=== PATIENT | female | born 1955 | race Caucasian/White ===

== ENCOUNTER 2017-03-26 16:07 | Outpatient (CLI) | payer BC ==
--- NOTE | 2017-03-30 20:21 | Mammography Report ---
DIGITAL SCREENING MAMMOGRAPHY: 03/26/2017 COMPARISON: 04/19/2014, 04/06/2012. TECHNIQUE: Routine CC and MLO projections were obtained of the breasts. There are scattered fibroglandular densities. A few benign-appearing calcifications are present. Th ere is no suspicious dominant mass, architectural distortion, skin thickening, suspicious microcalcif ications, or other finding. IMPRESSION: NEGATIVE. BIRADS CATEGORY: 1, NEGATIVE. SUGGEST ROUTINE SCREENING IN ONE YEAR. STANDARD QUALIFYING STATEMENTS 1. This examination was reviewed with the aid of Computed-Aided Detection (CAD). 2. A negative or benign imaging report should not delay biopsy if clinically suspicious findings are present. Consider surgical consultation if warranted. More than 5% of cancers are not identified b y imaging. 3. Dense breasts may obscure an underlying neoplasm. JOB #: [id number] EXT JOB #:[id number]
== END 2017-03-26 16:08 | disposition home or self-care (01) ==
LOC: DI.N 16:07
PROVIDERS: ATTEND Family Medicine
DX: Z12.31 Encounter for screening mammogram for malignant neoplasm of breast (principal)
CPT/HCPCS: 77067

== ENCOUNTER 2017-07-23 15:24 | Outpatient (CLI) | payer BC ==
[2017-07-23 15:39] LABS: BASOPHILS % (AUTO) 0.6 %; EOSINOPHILS # (AUTO) 0.2 10^3/uL (0.0-0.7); EOSINOPHILS % (AUTO) 3.9 %; HGB - HEMOGLOBIN 11.5 g/dL (12.0-16.0); LYMPHOCYTES # (AUTO) 2.5 10^3/uL (1.5-3.5); LYMPHOCYTES % (AUTO) 41.4 %; MEAN CORPUSCULAR HEMOGLOBIN 27.5 pg (27.0-31.0); MEAN CORPUSCULAR HGB CONC 32.9 g/dL (32.0-36.0); MEAN CORPUSCULAR VOLUME 83.5 fL (81.0-99.0); MEAN PLATELET VOLUME 6.8 fL (7.9-10.8); MONOCYTES # (AUTO) 0.5 10^3/uL (0.0-1.0); MONOCYTES % (AUTO) 7.5 %; NEUTROPHILS # (AUTO) 2.9 10^3/uL (1.5-6.6); NEUTROPHILS % (AUTO) 46.6 %; PLT - PLATELET COUNT 410 10^3/uL (130-450); RED BLOOD COUNT 4.19 10^6/uL (4.20-5.40); RED CELL DISTRIBUTION WIDTH 16.1 % (12.0-15.0); WHITE BLOOD COUNT 6.1 x10^3/uL (4.8-10.8)
[2017-07-23 15:52] LABS: ALBUMIN 4.3 g/dL (3.2-5.5); ALBUMIN/GLOBULIN RATIO 1.3 (1.0-2.2); BILIRUBIN,TOTAL 0.4 mg/dL (0.2-1.0); CALCIUM 10.1 mg/dL (8.5-10.3); CREATININE 0.9 mg/dL (0.4-1.0); TOTAL PROTEIN 7.5 g/dL (6.7-8.2)
--- NOTE | 2017-07-24 10:45 | XRAY Report ---
DATE OF SERVICE: 07/23/2017 TWO VIEW CHEST: 07/23/2017 CLINICAL INDICATION: Shortness of breath. COMPARISON: 03/22/2009. FINDINGS: The cardiac silhouette is within normal limits. The lungs are clear. No effusion or pneumothorax is present. IMPRESSION: NORMAL CHEST. TD: 07/24/2017 11:44
== END 2017-07-23 15:25 | disposition home or self-care (01) ==
LOC: LAB 15:24
PROVIDERS: ATTEND Physician Assistant Medical
DX: R10.13 Epigastric pain (principal); R06.02 Shortness of breath
CPT/HCPCS: 36415; 71046; 80053; 82150; 83690; 84484; 85025; 85379

== ENCOUNTER 2017-07-23 17:36 | Outpatient (CLI) | payer BC ==
[2017-07-23] MEDS ORDERED: IOPAMIDOL-300 100 ML VIAL ONE (17:49)
[2017-07-23] MEDS ORDERED: IOPAMIDOL-300 100 ML VIAL IVP ONE (18:46)
--- NOTE | 2017-07-23 19:46 | CT Preliminary Report ---
Exam: CT CHEST ANGIO (PE) IMPRESSION: 1. Normal pulmonary CT angiogram. No pulmonary emboli. 2. No consolidation or acute pulmonary process. Moderate bronchial wall thickening. Findings could re present bronchitis in the appropriate circumstances. Chronic clinically. [facility] The call report notification system was initiated by Dr. Rossy Li at 19:28 hrs on 07/23/17. The above findings were discussed with Dr. Mcneal by Dr. Rossy Li at 19:44 hrs on 07/23/17. SITE ID: [id number]
--- NOTE | 2017-07-23 20:01 | CT Report ---
EXAM: CT ANGIOGRAM CHEST EXAM DATE: 07/23/2017 06:13 PM. CLINICAL HISTORY: Shortness of breath. COMPARISON: 07/23/2017. TECHNIQUE: Routine helical imaging was performed through the chest in the pulmonary arterial phase. I V Contrast: 80 mL Isovue 300. Reconstructions: Coronal 3-D MIP reconstructions.Sagittal and coronal. In accordance with CT protocol optimization, one or more of the following dose reduction techniques w ere utilized for this exam: automated exposure control, adjustment of mA and/or KV based on patient s ize, or use of iterative reconstructive technique. FINDINGS: Pulmonary Arteries: Diagnostic quality: Adequate through the segmental arteries. No evidence for acute or chronic pulmona ry emboli. RV/LV is within normal limits. There is no interventricular septal bowing. There is no reflux of cont rast material in the IVC. Lungs/Pleura: No consolidation, nodules, or edema. No effusions or pneumothorax. Mosaic attenuation o f the lung parenchyma is noted. Moderate central bronchial wall thickening. Mediastinum: Normal. No cardiac enlargement or adenopathy. Thoracic Aorta: Unremarkable. Upper Abdomen: Gallbladder surgically absent. Limited evaluation of the upper abdomen is grossly unre markable. Tiny hiatal hernia. Other: Homogeneous enhancement of the thyroid gland. No thyroid nodule or mass. No supraclavicular or axillary lymphadenopathy identified. IMPRESSION: 1. Normal pulmonary CT angiogram. No pulmonary emboli. 2. No consolidation or acute pulmonary process. Moderate bronchial wall thickening. Findings could re present bronchitis in the appropriate circumstances. Chronic clinically. RAD[facility] The call report notification system was initiated by Dr. Rossy Li at 19:28 hrs on 07/23/17. The above findings were discussed with Dr. Mcneal by Dr. Rossy Li at 19:44 hrs on 07/23/17. Referring Provider Line: [phone] SITE ID: [id number]
== END 2017-07-23 17:37 | disposition home or self-care (01) ==
LOC: DI 17:36
PROVIDERS: ATTEND Physician Assistant Medical
DX: R06.02 Shortness of breath (principal); R10.13 Epigastric pain
CPT/HCPCS: 36415; 71046; 71275; 80053; 82150; 83690; 84484; 85025; 85379; Q9967

== ENCOUNTER 2017-07-27 12:25 | Outpatient (CLI) | payer BC | END 2017-07-27 12:26 | disposition home or self-care (01) | LOC: LAB.R 12:25 | PROVIDERS: ATTEND Physician Assistant Medical | DX: N39.0 Urinary tract infection, site not specified (principal) | CPT/HCPCS: 87086 ==

== ENCOUNTER 2017-11-01 10:01 | Emergency (ER) | payer BC ==
[2017-11-01 10:35] LABS: EOSINOPHILS # (AUTO) 0.1 10^3/uL (0.0-0.7); EOSINOPHILS % (AUTO) 2.6 %; HGB - HEMOGLOBIN 11.2 g/dL (12.0-16.0); LYMPHOCYTES # (AUTO) 1.7 10^3/uL (1.5-3.5); LYMPHOCYTES % (AUTO) 41.4 %; MEAN CORPUSCULAR HEMOGLOBIN 27.2 pg (27.0-31.0); MEAN CORPUSCULAR HGB CONC 32.1 g/dL (32.0-36.0); MEAN CORPUSCULAR VOLUME 84.5 fL (81.0-99.0); MEAN PLATELET VOLUME 6.9 fL (7.9-10.8); MONOCYTES # (AUTO) 0.3 10^3/uL (0.0-1.0); MONOCYTES % (AUTO) 7.7 %; NEUTROPHILS % (AUTO) 47.3 %; PLT - PLATELET COUNT 232 10^3/uL (130-450); RED BLOOD COUNT 4.12 10^6/uL (4.20-5.40); WHITE BLOOD COUNT 4.2 x10^3/uL (4.8-10.8)
[2017-11-01 11:04] LABS: ALBUMIN 3.9 g/dL (3.2-5.5); ALBUMIN/GLOBULIN RATIO 1.5 (1.0-2.2); BILIRUBIN,TOTAL 0.3 mg/dL (0.2-1.0); CALCIUM 9.6 mg/dL (8.5-10.3); CREATININE 0.8 mg/dL (0.4-1.0); TOTAL PROTEIN 6.5 g/dL (6.7-8.2)
--- NOTE | 2017-11-01 11:16 | ED Physician Documentation ---
PD HPI CHEST PAIN - Stated complaint Stated Complaint: CHEST PX/HEADACHE/PX IN ARMS - Chief complaint Chief Complaint: Cardiac - History obtained from History obtained from: Patient - History of Present Illness Timing - onset: Enter time (0700), Today Timing - onset during: Rest Timing - duration: Minutes Timing - details: Abrupt onset, Now resolved Quality: Pressure, Sharp Location: Substernal Radiation: Left upper extremity, Right upper extremity Associated symptoms: Diaphoresis, Nausea, Vomiting, Feeling faint / dizzy Similar symptoms before: Has not had sx before Recently seen: Clinic - Additional information Additional information: 62-year-old female with a history of type 2 diabetes and chronic back pain has awakened this morning with nausea she went into her bathroom to brush her teeth she gagged on her toothbrush and vomited. She developed some pain down each of her arms for about a minute. She had pain in the top of her head as well at the time. This symptoms have resolved and she is now symptom free. She has been treated recently for urinary tract infection with Macrobid and had resolution of her symptoms and they returned rapidly with discontinuation of the antibiotic. Review of Systems Constitutional: denies: Fever, Chills, Myalgias Eyes: denies: Decreased vision Ears: denies: Ear pain Nose: denies: Rhinorrhea / runny nose, Congestion Throat: denies: Sore throat Cardiac: reports: Chest pain / pressure. denies: Palpitations, Pedal edema, Calf pain Respiratory: denies: Dyspnea, Cough GI: reports: Nausea, Vomiting. denies: Abdominal Pain, Constipation, Diarrhea : reports: Dysuria, Frequency Skin: denies: Rash Musculoskeletal: reports: Back pain. 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 HEENT: Tonsil/Adenoidectomy - Present Medications Home Medications: Ambulatory Orders Medication Instructions Recorded Confirmed Exenatide [Byetta] 5 mcg SQ BID 11/21/13 11/21/13 Insulin Aspart (Vial) [NovoLOG] 34 unit SUBQ HS 11/21/13 11/21/13 Rosuvastatin Calcium [Crestor] 5 mg PO 11/21/13 11/21/13 Topiramate 100 gm MC ACHS 11/21/13 11/21/13 metFORMIN [Glucophage] 1,000 mg PO BIDWM 11/21/13 11/21/13 Methocarbamol 750 mg PO BID 11/01/17 Nitrofurantoin Monohyd/M-Cryst 100 mg PO BID 11/01/17 [Macrobid 100 mg Capsule] - Allergies Allergies/Adverse Reactions: Allergies Allergy/AdvReac Type Severity Reaction Status Date / Time cephalexin monohydrate * Allergy Mild Hives Verified 11/01/17 10:14 [From Keflex] Sulfa (Sulfonamide Allergy Mild Hives Verified 11/01/17 10:14 Antibiotics) Penicillins Allergy Hives Verified 11/01/17 10:14 phenobarbital Allergy Hives Verified 11/01/17 10:14 aspirin AdvReac stomach Verified 11/01/17 10:14 burning ibuprofen AdvReac stomach Verified 11/01/17 10:14 burning ketorolac AdvReac vein Verified 11/01/17 10:14 burning - Social History Does the pt smoke?: No Smoking Status: Never smoker Does the pt drink ETOH?: Yes Does the pt have substance abuse?: No - Immunizations Immunizations are current?: Yes - POLST Patient has POLST: Yes PD ED PE NORMAL - Vitals Vital signs reviewed: Yes (hypertensive) - General General: Alert and oriented X 3, No acute distress, Well developed/nourished - HEENT HEENT: Atraumatic, PERRL, EOMI - Neck Neck: Supple, no meningeal sign, No bony TTP - Cardiac Cardiac: RRR, No murmur - Respiratory Respiratory: No respiratory distress, Clear bilaterally - Abdomen Abdomen: Soft, Non tender - Back Back: No CVA TTP, No spinal TTP - Derm Derm: Normal color, Warm and dry, Other (poor skin turgor) - Extremities Extremities: No deformity, No edema - Neuro Neuro: No motor deficit, No sensory deficit Eye Opening: Spontaneous Motor: Obeys Commands Verbal: Oriented GCS Score: 15 - Psych Psych: Normal mood, Normal affect Results - Vitals Vitals: Vital Signs - 24 hr 11/01/17 11/01/17 11/01/17 10:09 10:32 11:12 Temperature 36.6 C Heart Rate 100 90 Respiratory 15 20 Rate Blood Pressure 143/80 H 135/71 H Blood Pressure 143/80 H [Left] Blood Pressure 143/70 H [Right] O2 Saturation 98 96 11/01/17 11/01/17 11/01/17 11:55 12:54 13:25 Temperature Heart Rate 86 88 80 Respiratory 18 15 18 Rate Blood Pressure 151/80 H 137/74 H 136/58 H Blood Pressure [Left] Blood Pressure [Right] O2 Saturation 95 97 96 Oxygen O2 Source Room air - EKG (time done) 1005 Rate: Rate (enter#) (98) Rhythm: NSR QRS: LVH Other comments: Other comments (early transition ) Compare to prior EKG: Old EKG unavailable Computer interpretation: Agree with computer - Labs Labs: Laboratory Tests 11/01/17 11/01/17 11/01/17 10:25 10:45 10:45 WBC 4.2 L RBC 4.12 L Hgb 11.2 L Hct 34.8 L MCV 84.5 MCH 27.2 MCHC 32.1 RDW 16.0 H Plt Count 232 MPV 6.9 L Neut # 2.0 Lymph # 1.7 [place] # 0.3 Eos # 0.1 Baso # 0.0 Absolute Nucleated RBC 0.00 Nucleated RBC % 0.0 Sodium 139 Potassium 4.3 Chloride 109 Carbon Dioxide 22 Anion Gap 8.0 BUN 20 Creatinine 0.8 Estimated GFR (MDRD) 72 L Glucose 119 H Calcium 9.6 Total Bilirubin 0.3 AST 25 ALT 19 Alkaline Phosphatase 38 L Troponin I < 0.04 Total Protein 6.5 L Albumin 3.9 Globulin 2.6 Albumin/Globulin Ratio 1.5 Lipase 46 Urine Color Urine Clarity Urine pH Ur Specific [place] Urine Protein Urine Glucose (UA) Urine Ketones Urine Occult Blood Urine Nitrite Urine Bilirubin Urine Urobilinogen Ur Leukocyte Esterase Ur Microscopic Review Urine Culture Comments 11/01/17 11:45 WBC RBC Hgb Hct MCV MCH MCHC RDW Plt Count MPV Neut # Lymph # [place] # Eos # Baso # Absolute Nucleated RBC Nucleated RBC % Sodium Potassium Chloride Carbon Dioxide Anion Gap BUN Creatinine Estimated GFR (MDRD) Glucose Calcium Total Bilirubin AST ALT Alkaline Phosphatase Troponin I Total Protein Albumin Globulin Albumin/Globulin Ratio Lipase Urine Color YELLOW Urine Clarity CLEAR Urine pH 6.0 Ur Specific [place] 1.025 Urine Protein NEGATIVE Urine Glucose (UA) NEGATIVE Urine Ketones NEGATIVE Urine Occult Blood NEGATIVE Urine Nitrite NEGATIVE Urine Bilirubin NEGATIVE Urine Urobilinogen 0.2 (NORMAL) Ur Leukocyte Esterase NEGATIVE Ur Microscopic Review NOT INDICATED Urine Culture Comments NOT INDICATED - Rads (name of study) 2 veiw chest Radiology: Prelim report reviewed (Impression: 1. Mild elevation right hemidiaphragm appears similar to the prior exam. 2. No acute cardiopulmonary abnormality.), EMP read indepedently, See rad report Procedures - IVC sono (time) 1130 Bedside IVC sono: IVC measures (cm) (0.97), IVC collapsed c insp (cm) (complete) , Dehydration (est 1-2 liter deficit) PD MEDICAL DECISION MAKING - ED course Complexity details: reviewed results, re-evaluated patient, considered differential, d/w patient ED course: 62-year-old female with a history of chronic urinary tract infection is developed nausea with some vomiting this morning and a concerning episode of pain down both of her arms her chest and upper on her head last about 1 minute. She has normal-appearing electric cardiogram this morning. She is found to be dehydrated on interrogation of the inferior vena cava and IV saline is begun. Departure - Departure Disposition: 01 Home, Self Care Clinical Impression: Dehydration Condition: Stable Instructions: ED Dehydration Follow-Up: Yaquelin Villafuerte PA-C [Primary Care Provider] - Discharge Date/Time: 11/01/17 13:24
[2017-11-01] MEDS ORDERED: SODIUM CHLORIDE 0.9% 1,000 ML IV ONE (11:33)
[2017-11-01 11:56] LABS: BILIRUBIN,URINE NEGATIVE (NEGATIVE); GLUCOSE, URINE (UA) NEGATIVE (NEGATIVE); KETONES,URINE (UA) NEGATIVE (NEGATIVE); LEUKOCYTE ESTERASE, URINE NEGATIVE (NEGATIVE); NITRITE,URINE NEGATIVE (NEGATIVE); OCCULT BLOOD,URINE NEGATIVE (NEGATIVE); PROTEIN,URINE NEGATIVE (NEGATIVE); UROBILINOGEN,URINE 0.2 (NORMAL) E.U./dL (NORMAL)
[2017-11-01 12:01] LABS: CLARITY,URINE CLEAR (CLEAR)
[2017-11-01] MEDS ORDERED: ONDANSETRON ODT 4 MG TABLET TL STA (13:03)
--- NOTE | 2017-11-01 13:53 | XRAY Preliminary Report ---
Exam: XR CHEST 2 VIEW X-RAY IMPRESSION: 1. Mild elevation of the right hemidiaphragm appears similar to the prior exam. 2. No acute cardiopulmonary abnormality. [facility] SITE ID: [id number]
--- NOTE | 2017-11-01 13:53 | XRAY Report ---
EXAM: CHEST RADIOGRAPHY EXAM DATE: 11/01/2017 01:17 PM. CLINICAL HISTORY: Chest pain. COMPARISON: 03/22/2009. TECHNIQUE: 2 views. FINDINGS: Lungs/Pleura: There is persistent mild elevation of the right hemidiaphragm. No focal opacities evide nt. No pleural effusion. No pneumothorax. Normal volumes. Mediastinum: Heart and mediastinal contours are unremarkable. Other: Cholecystectomy clips are present in the right upper quadrant of the abdomen. There are mild d egenerative disk changes of the thoracic spine. No acute osseous abnormality. IMPRESSION: 1. Mild elevation of the right hemidiaphragm appears similar to the prior exam. 2. No acute cardiopulmonary abnormality. [facility] Referring Provider Line: [phone] SITE ID: [id number]
[2017-11-01 14:38] VITALS: BP 134/64
== END 2017-11-01 15:02 | disposition home or self-care (01) ==
LOC: ED 10:01
DX: E86.0 Dehydration (principal); E11.9 Type 2 diabetes mellitus without complications; Z79.4 Long term (current) use of insulin; K21.9 Gastro-esophageal reflux disease without esophagitis; E78.00 Pure hypercholesterolemia, unspecified; Z87.440 Personal history of urinary (tract) infections
CPT/HCPCS: 36415; 71046; 80053; 81003; 83690; 84484; 85025; 93005; 96360; 99284; Q0162; 81001; 87086

== ENCOUNTER 2018-08-06 15:14 | Outpatient (CLI) | payer BC ==
--- NOTE | 2018-08-10 09:34 | DEXA Report ---
Reason: OTHER SPECIFIED MENOPAUSAL AND PERIMENOPAUSAL DISO Procedure Date: 08/06/2018 Accession Number: [id number] / [id number] Procedure: DEX - Dexa Spine and/or Hip CPT Code: FULL RESULT: EXAM: Dexa Spine and/or Hip DATE: 08/06/2018 3:56 PM CLINICAL HISTORY: OTHER SPECIFIED MENOPAUSAL AND PERIMENOPAUSAL DISO TECHNIQUE: Dual energy x-ray absorptiometry (DXA) was performed on a [employer] System. Regions measured are the AP Spine, femoral neck, and if needed forearm. COMPARISON: None. In accordance with the International Society for Clinical Densitometry (ISCD) guidelines, data from previous exams may be reanalyzed using current recommendations and techniques. This is done to allow a more accurate basis for comparison with the current study. FINDINGS: The data for the lumbar spine is as follows: BMD (g/cm/cm) T-SCORE Z-SCORE REGION L1 1.012 -1.0 0.2 L2 1.286 0.7 1.9 L3 1.292 0.8 1.9 L4 excluded TOTAL 1.200 0.2 1.4 NOTE: All evaluable vertebrae are used for classification The data for the hip is as follows: BMD (g/cm/cm) T-SCORE Z-SCORE REGION Neck 0.977 -0.4 0.7 TOTAL 1.078 0.6 1.4 NOTE: The femoral neck or total proximal femur, whichever is lowest, is used for classification. IMPRESSION: THE WHO CLASSIFICATION BASED ON THE INTERNATIONAL REFERENCE STANDARD IS NORMAL. THE FRACTURE RISK IS NOT INCREASED. RECOMMENDATION: Patients with diagnosis of osteoporosis or osteopenia should have regular bone mineral density assessment. For those eligible for Medicare, routine testing is allowed once every 2 years. Testing frequency can be increased for patients who have rapidly progressing disease or for those who are receiving medical therapy to restore bone mass. COMMENT: World Health Organization (WHO) definitions for osteoporosis and osteopenia: NORMAL BMD: T-score at -1.0 or higher, fracture risk is low OSTEOPENIA BMD: T-score between -1.0 and -2.5, fracture risk is increased. OSTEOPOROSIS BMD: T-score at -2.5 or lower, fracture risk is high. National Osteoporosis Foundation recommends: 1. Obtain adequate dietary calcium (at least 1200 mg per day) and vitamin D (400-800 international units per day). 2. Participate, as appropriate, in regular weightbearing and muscle-strengthening exercise. 3. Avoid tobacco use and reduce alcohol and caffeine intake. 4. For more detailed information see the website at www.NOF.org.
== END 2018-08-06 15:15 | disposition home or self-care (01) ==
LOC: DI 15:14
PROVIDERS: ATTEND Internal Medicine
DX: N95.8 Other specified menopausal and perimenopausal disorders (principal); Z13.820 Encounter for screening for osteoporosis
CPT/HCPCS: 77080

== ENCOUNTER 2020-02-03 07:16 | Day surgery (SDC) | payer BC ==
[2020-02-03] MEDS ORDERED: MIDAZOLAM 2 MG/2 ML VIAL IVP ONE (07:17)
[2020-02-03] MEDS ORDERED: fentaNYL 250 MCG/5 ML VIAL IVP ONE (07:17)
[2020-02-03] MEDS ORDERED: LACTATED RINGERS 1,000 ML IV ONE (07:24)
[2020-02-03 10:34] VITALS: BP 124/53
== END 2020-02-03 07:17 | disposition home or self-care (01) ==
LOC: SDS 07:16
PROVIDERS: ATTEND Surgery
PROC: 0DBH8ZX Excision of Cecum, Via Natural or Artificial Opening Endoscopic, Diagnostic (ICD-10-PCS; principal; 2020-02-03 08:45)
DX: Z12.11 Encounter for screening for malignant neoplasm of colon (principal); D12.0 Benign neoplasm of cecum; R19.5 Other fecal abnormalities; K57.30 Diverticulosis of large intestine without perforation or abscess without bleeding; E11.42 Type 2 diabetes mellitus with diabetic polyneuropathy; Z79.4 Long term (current) use of insulin; Z87.19 Personal history of other diseases of the digestive system; Z87.891 Personal history of nicotine dependence
CPT/HCPCS: 45380; J3010; J7120

== ENCOUNTER 2020-05-20 15:30 | Emergency (ER) | payer BC ==
--- NOTE | 2020-05-20 15:50 | ED Physician Documentation ---
PD HPI CHEST PAIN - Stated complaint Stated Complaint: CHEST/JAW PX - Chief complaint Chief Complaint: Cardiac - History obtained from History obtained from: Patient - History of Present Illness Timing - onset: How many weeks ago (1) Timing - details: Waxing and waning Pain level max: 9 Pain level now: 3 Improved by: Nothing Worsened by: Other (nothing, no change with exertion, eating, breathing.) Similar symptoms before: Has not had sx before Recently seen: Not recently seen - Additional information Additional information: 65-year-old female presents to the emergency department complaining of intermittent chest pain for the past week. States that it waxes and wanes in intensity. States is been present "all day" today. The worsening symptoms last for about 5 minutes. Starts in her epigastrium and goes up to her throat. Has a history of GERD in the past. No history of cardiac symptoms. She states she had a cardiac stress test several years ago that was reportedly normal. No cardiac history. She does not smoke. She did recently travel to [place] to see her daughter, she states that the symptoms were present then as well. She took aspirin and Tums today without relief. Came in for evaluation. No fever. No cough. No shortness of breath. The pain is described as pressure. Review of Systems Constitutional: denies: Fever, Chills Ears: denies: Ear pain Nose: denies: Rhinorrhea / runny nose, Congestion Throat: denies: Sore throat Cardiac: denies: Palpitations, Pedal edema, Calf pain Respiratory: denies: Cough GI: denies: Nausea, Vomiting, Diarrhea : denies: Dysuria, Frequency, Hesitancy Skin: denies: Rash Musculoskeletal: denies: Neck pain, Back pain Neurologic: denies: Focal weakness, Numbness, Headache PD PAST MEDICAL HISTORY - Past Medical History Past Medical History: Yes Cardiovascular: High cholesterol Respiratory: None Endocrine/Autoimmune: Type 2 diabetes GI: GERD, Diverticulitis : None HEENT: None Psych: None Musculoskeletal: Chronic back pain Derm: None - Past Surgical History General: Cholecystectomy, Appendectomy, Colonoscopy 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 HEENT: Tonsil/Adenoidectomy - Present Medications Home Medications: Ambulatory Orders Medication Instructions Recorded Confirmed Insulin Aspart (Vial) [NovoLOG] 13 unit SUBQ HS 11/21/13 02/02/20 Rosuvastatin Calcium [Crestor] 5 mg PO DAILY 11/21/13 02/02/20 Topiramate 100 gm MC ACHS 11/21/13 02/02/20 methocarbamoL [Methocarbamol] 750 mg PO BID 11/01/17 02/02/20 Oxybutynin Chloride [Oxybutynin 15 mg PO DAILY 02/02/20 02/02/20 Chloride ER] Semaglutide [Ozempic] 1 mg SQ OAW 02/03/20 02/03/20 - Allergies Allergies/Adverse Reactions: Allergies Allergy/AdvReac Type Severity Reaction Status Date / Time cephalexin monohydrate * Allergy Mild Hives Verified 02/03/20 07:25 [From Keflex] Sulfa (Sulfonamide Allergy Mild Hives Verified 02/03/20 07:25 Antibiotics) Penicillins Allergy Hives Verified 02/03/20 07:25 phenobarbital Allergy Hives Verified 02/03/20 07:25 aspirin AdvReac stomach Verified 02/03/20 07:25 burning ibuprofen AdvReac stomach Verified 02/03/20 07:25 burning ketorolac AdvReac vein Verified 02/03/20 07:25 burning - Social History Does the pt smoke?: No Smoking Status: Never smoker Does the pt drink ETOH?: Yes Does the pt have substance abuse?: No - Immunizations Immunizations are current?: Yes - POLST Patient has POLST: Yes PD ED PE NORMAL - Vitals Vital signs reviewed: Yes - General General: Alert and oriented X 3 - HEENT HEENT: PERRL, Moist mucous membranes - Neck Neck: Supple, no meningeal sign, No JVD, No bruit - Cardiac Cardiac: RRR, No murmur, Strong equal pulses - Respiratory Respiratory: No respiratory distress, Clear bilaterally - Abdomen Abdomen: Soft, Non tender, Non distended - Back Back: No CVA TTP, No spinal TTP - Derm Derm: Warm and dry - Extremities Extremities: No edema - Neuro Neuro: Alert and oriented X 3, data developer 2-12 intact, No motor deficit, No sensory deficit, Normal speech Eye Opening: Spontaneous Motor: Obeys Commands Verbal: Oriented GCS Score: 15 - Psych Psych: Normal mood, Normal affect Results - Vitals Vitals: Vital Signs - 24 hr 05/20/20 05/20/20 05/20/20 15:35 15:54 16:39 Temperature 37.0 C Heart Rate 97 84 79 Respiratory 18 15 18 Rate Blood Pressure 139/84 H 155/85 H 149/74 H O2 Saturation 98 100 99 05/20/20 17:15 Temperature 36 C L Heart Rate 84 Respiratory 15 Rate Blood Pressure 141/89 H O2 Saturation 98 Oxygen O2 Source Room air - EKG (time done) 1537 Rate: Rate (enter#) (86) Rhythm: NSR [place]: Normal Intervals: Normal [place] QRS: Normal Ischemia: Normal ST segments - Labs Labs: Laboratory Tests 05/20/20 05/20/20 05/20/20 15:52 15:52 15:52 WBC 5.3 RBC 4.01 L Hgb 11.1 L Hct 34.9 L MCV 87.0 MCH 27.7 MCHC 31.8 L RDW 15.2 H Plt Count 216 MPV 8.6 Neut # (Auto) 2.5 Lymph # (Auto) 2.1 [place] # (Auto) 0.4 Eos # (Auto) 0.3 Baso # (Auto) 0.0 Absolute Nucleated RBC 0.00 Nucleated RBC % 0.0 D-Dimer Sodium 138 Potassium 3.5 Chloride 105 Carbon Dioxide 21 Anion Gap 12.0 BUN 17 Creatinine 0.8 Estimated GFR (MDRD) 72 L Glucose 136 H Calcium 8.7 Total Bilirubin 0.7 AST 21 ALT 22 Alkaline Phosphatase 68 Troponin I High Sens 3.3 Total Protein 6.7 Albumin 3.8 Globulin 2.9 Albumin/Globulin Ratio 1.3 Lipase 53 H 05/20/20 15:52 WBC RBC Hgb Hct MCV MCH MCHC RDW Plt Count MPV Neut # (Auto) Lymph # (Auto) [place] # (Auto) Eos # (Auto) Baso # (Auto) Absolute Nucleated RBC Nucleated RBC % D-Dimer 240.4 Sodium Potassium Chloride Carbon Dioxide Anion Gap BUN Creatinine Estimated GFR (MDRD) Glucose Calcium Total Bilirubin AST ALT Alkaline Phosphatase Troponin I High Sens Total Protein Albumin Globulin Albumin/Globulin Ratio Lipase - Rads (name of study) cxr Radiology: Prelim report reviewed, EMP read contemporaneously, See rad report (normal) PD MEDICAL DECISION MAKING - ED course Complexity details: reviewed results, re-evaluated patient, considered differential (No ST elevation IA, no aortic dissection, no PE, no tension pneumothorax, no aortic aneurysm), d/w patient ED course: 65-year-old female with atypical chest pain. Negative D-dimer. No evidence of PE, aortic dissection. Symptoms resolved with GI cocktail. Likely related to her GERD. We will have her follow-up with her doctor for a cardiac stress test. No significant lab abnormalities. Negative high-sensitivity troponin. Patient counseled regarding signs and symptoms for which I believe and urgent re- evaluation would be necessary. Patient with good understanding of and agreement to plan and is comfortable going home at this time This document was made in part using voice recognition software. While efforts are made to proofread this document, sound alike and grammatical errors may occur. Departure - Departure Disposition: Home, Self Care Clinical Impression: Chest pain Qualifiers: Chest pain type: unspecified Qualified Code(s): R07.9 - Chest pain, unspecified Condition: Good Instructions: ED Chest Pain Atypical Unkn Cause Follow-Up: Manny Berrios MD [Primary Care Provider] - Within 1 week Comments: Follow up with your doctor for further care. You should have a cardiac stress test set up with your doctor this week. Return if you worsen. Discharge Date/Time: 05/20/20 17:21
[2020-05-20 15:58] LABS: BASOPHILS % (AUTO) 0.4 %; EOSINOPHILS # (AUTO) 0.3 10^3/uL (0.0-0.7); EOSINOPHILS % (AUTO) 4.9 %; HGB - HEMOGLOBIN 11.1 g/dL (12.0-16.0); LYMPHOCYTES # (AUTO) 2.1 10^3/uL (1.5-3.5); LYMPHOCYTES % (AUTO) 39.7 %; MEAN CORPUSCULAR HEMOGLOBIN 27.7 pg (27.0-31.0); MEAN CORPUSCULAR HGB CONC 31.8 g/dL (32.0-36.0); MEAN PLATELET VOLUME 8.6 fL (7.9-10.8); MONOCYTES # (AUTO) 0.4 10^3/uL (0.0-1.0); MONOCYTES % (AUTO) 7.9 %; NEUTROPHILS # (AUTO) 2.5 10^3/uL (1.5-6.6); NEUTROPHILS % (AUTO) 46.7 %; PLT - PLATELET COUNT 216 10^3/uL (130-450); RED BLOOD COUNT 4.01 10^6/uL (4.20-5.40); RED CELL DISTRIBUTION WIDTH 15.2 % (12.0-15.0); WHITE BLOOD COUNT 5.3 x10^3/uL (4.8-10.8)
[2020-05-20 16:11] LABS: ALBUMIN 3.8 g/dL (3.2-5.5); ALBUMIN/GLOBULIN RATIO 1.3 (1.0-2.2); BILIRUBIN,TOTAL 0.7 mg/dL (0.2-1.0); CALCIUM 8.7 mg/dL (8.5-10.3); CREATININE 0.8 mg/dL (0.4-1.0); TOTAL PROTEIN 6.7 g/dL (6.7-8.2)
--- NOTE | 2020-05-20 16:36 | XRAY Report ---
PROCEDURE: Chest 1 View X-Ray INDICATIONS: Chest Pain TECHNIQUE: One view of the chest was acquired. COMPARISON: 11/01/2017. FINDINGS: Surgical changes and devices: None. Lungs and pleura: No pleural effusions or pneumothorax. Lungs are clear. There is elevation of the right hemidiaphragm redemonstrated. Mediastinum: Mediastinal contours appear normal. Heart size is normal. Bones and chest wall: No suspicious bony lesions. Overlying soft tissues appear unremarkable. IMPRESSION: 1. No acute cardiopulmonary disease. Reviewed by: Jaskaran Diaz MD on 05/20/2020 4:34 PM PST Approved by: Jaskaran Diaz MD on 05/20/2020 4:34 PM PST Station ID: [id number]
[2020-05-20] MEDS ORDERED: SUCRALFATE 1 GM/10 ML UDC PO STA (16:42)
[2020-05-20] MEDS ORDERED: LIDOCAINE VISCOUS 2% 15 ML UDC MM STA (16:42)
[2020-05-20] MEDS ORDERED: MAG HYDROX/AL HYDROX/SIMETH 30 ML UDC PO STA (16:42)
[2020-05-20 17:16] VITALS: BP 141/89
== END 2020-05-20 17:21 | disposition home or self-care (01) ==
LOC: ED 15:30
DX: R07.89 Other chest pain (principal); K21.9 Gastro-esophageal reflux disease without esophagitis; E11.9 Type 2 diabetes mellitus without complications; Z79.4 Long term (current) use of insulin
CPT/HCPCS: 36415; 71045; 80053; 83690; 84484; 85025; 85379; 93005; 99284; A9270